=== PATIENT | male | born 1945 | race Caucasian/White ===

== ENCOUNTER 2017-03-03 07:10 | Emergency (ER) | payer MEDICARE ==
[~2017-03-03] VITALS: Ht 177.8 cm; Wt 101.0 kg
[2017-03-03 07:15] VITALS: BP 158/94; PULSE 93; RESP 16; TEMP 98; O2SAT 97
--- NOTE | 2017-03-03 07:26 | PD ---
HPI Chief Complaint: Complaint Time Seen by Provider: 07:24 Travel History International Travel<30 days: No Contact w/Intl Traveler<30days: No Traveled to known affect area: No History of Present Illness HPI 71-year-old male with history of BPH, had recently been seen by urology and had been put on a medication he does not know the name off, states he had been on it for 2 weeks and had ran out of it yesterday, and last night was not able to urinate. He has not been able to urinate since 8 PM although he states he feels urgency. He denies any abdominal pain, vomiting, fevers, or other symptoms. He states that he has a catheter that he is post to use to try to self catheter in emergencies but was not able to pass it. Modifying Factors: None Associated Signs & Symptoms: Urinary outflow obstruction Risk Factors: BPH history PFSH Social History Tobacco Use: No Allergies-Medications (Allergen,Severity, Reaction): Coded Allergies: No Known Allergies (Unverified , 03/03/17) Reported Meds & Prescriptions Reported Meds & Active Scripts Active Reported Aspirin Low Dose (Aspirin) 81 Mg Chew 81 Mg CHEW DAILY Atenolol 25 Mg Tab 25 Mg PO DAILY Lisinopril-Hctz 20-12.5 Mg Tab 1 Tab PO DAILY Metformin (Metformin HCl) 850 Mg Tab 850 Mg PO BIDPC With meals Review of Systems Except as stated in HPI: all other systems reviewed are Neg Physical Exam Narrative GENERAL: Well-developed elderly white male patient in mild distress. Awake and oriented 3. SKIN: Focused skin assessment warm/dry. HEAD: Atraumatic. Normocephalic. EYES: Pupils equal and round. No scleral icterus. No injection or drainage. ENT: No nasal bleeding or discharge. Mucous membranes pink and moist. NECK: Trachea midline. No JVD. CARDIOVASCULAR: Regular rate and rhythm. No murmur appreciated. RESPIRATORY: No accessory muscle use. Clear to auscultation. Breath sounds equal bilaterally. GASTROINTESTINAL: Abdomen soft, mild suprapubic, mildly distended. Hepatic and splenic margins not palpable. MUSCULOSKELETAL: No obvious deformities. No clubbing. No cyanosis. No edema. NEUROLOGICAL: Awake and alert. No obvious cranial nerve deficits. Motor grossly within normal limits. Normal speech. PSYCHIATRIC: Appropriate mood and affect; insight and judgment normal. Data Data Last Documented VS Vital Signs Date Time Temp Pulse Resp B/P Pulse Ox O2 Delivery O2 Flow Rate FiO2 03/03/17 07:15 98.0 93 16 158/94 97 Orders Urinary Catheter Insert/Apply (03/03/17 07:20) MDM Medical Decision Making Medical Screen Exam Complete: Yes Emergency Medical Condition: Yes Medical Record Reviewed: Yes Differential Diagnosis Urinary outflow obstruction Narrative Course Patient has had previous foreskin surgery with scarring of the foreskin. Attempts have been done by nurse and I to locate his urethra in order to place the Weber catheter. However, this is quite complicated considering that I'm not able to see the urethral opening well secondary to do scarring at the foreskin. He does not have phimosis or paraphimosis currently. However, I am not so not able to place the catheter. At this point, the case was discussed with Dr. Martinez's PA who had seen the patient several weeks ago and she states that the patient can come to the office in [place] for treatment of this issue. Return for new issues as needed. The plan has been discussed with the patient and he states understanding. Diagnosis Primary Impression: Urinary obstruction Additional Instructions: Go directly to Dr. Martinez's office at [address] [place] [address] in [place] for definitive therapy. Case was discussed with Dr. Juan Vaca's PA. Disposition: 01 DISCHARGE HOME (to go see Dr. Martinez) Condition: Stable Bernadette Talley MD Mar 03, 2017 07:26
[2017-03-03] MEDS ORDERED: ASPI81CH37 CHEW (07:28)
[2017-03-03] MEDS ORDERED: LISI20TA PO (07:28)
[2017-03-03] MEDS ORDERED: ATEN25TA PO (07:28)
[2017-03-03] MEDS ORDERED: METF850T PO (07:28)
[2017-03-03 08:47] VITALS: BP 136/87
== END 2017-03-03 08:48 | disposition home or self-care (01) ==
LOC: PHED 07:10
DX: N13.9 Obstructive and reflux uropathy, unspecified (principal); N40.1 Benign prostatic hyperplasia with lower urinary tract symptoms
CPT/HCPCS: 99283